=== PATIENT | female | born 1995 | race Caucasian/White ===

== ENCOUNTER 2022-06-19 15:13 | Outpatient (CLI) | payer OTHER ==
[2022-06-19 15:45] LABS: BILIRUBIN,URINE NEGATIVE (NEGATIVE); GLUCOSE, URINE (UA) NEGATIVE (NEGATIVE); KETONES,URINE (UA) NEGATIVE (NEGATIVE); LEUKOCYTE ESTERASE, URINE NEGATIVE (NEGATIVE); NITRITE,URINE NEGATIVE (NEGATIVE); OCCULT BLOOD,URINE NEGATIVE (NEGATIVE); PH,URINE 6.5 PH (5.0-7.5); PROTEIN,URINE NEGATIVE (NEGATIVE); UROBILINOGEN,URINE 0.2 (NORMAL) E.U./dL (NORMAL)
[2022-06-19 15:48] LABS: CLARITY,URINE CLEAR (CLEAR)
[2022-06-19 16:31] LABS: BACTERIA,URINE Few /HPF (None Seen); RBC,URINE None Seen /HPF (0-5); SQUAMOUS EPITHELIAL CELL,UR FEW Squamous (<= Few); WBC,URINE 0-3 /HPF (0-5)
== END 2022-06-19 15:14 | disposition home or self-care (01) ==
LOC: LAB.WC 15:13
PROVIDERS: ATTEND Nurse Practitioner
DX: Z34.90 Encounter for supervision of normal pregnancy, unspecified, unspecified trimester (principal)
CPT/HCPCS: 81001; 87086

== ENCOUNTER 2022-07-05 20:36 | Outpatient (CLI) | payer OTHER ==
--- NOTE | 2022-07-06 03:14 | Ultrasound Report ---
PROCEDURE: OB First Trimester w/TV INDICATIONS: POSITIVE TEST OUTSIDE/PRIOR DATING DATA: Last menstrual period (LMP): 04/07/2022. LMP-based estimated date of delivery (LORENZO): 01/12/2023. First dating scan (date and location): 07/05/2022. Estimated date of delivery (LORENZO) from first dating scan: 01/10/2023. TECHNIQUE: Real-time scanning was performed of the fetus and maternal pelvic organs, with image documentation. Endovaginal scanning was also performed to better visualize the fetus and maternal ovaries. COMPARISON: None. FINDINGS: Embryo: There is a single intrauterine demonstrating a crown-rump length of 6.7 cm corresp onding to a gestational age of 13 weeks 0 days. There is heart motion with a rate of 160 bpm. M aternal cervical canal is closed and measures up to 4.4 cm. There is a small perigestational subchori onic hematoma measuring proxy 2.2 x 1.7 x 1.5 cm. Measurement variability in dating: +/- 4 weeks by LMP, +/- 7 days by mean sac diameter (use before 6 weeks gestation if crown-rump length not able to be measured), +/- 5 days by crown-rump length (6-12 weeks gestation). Maternal organs: There is a thick-walled cyst in the left ovary compatible with a small corpus luteal cyst.. IMPRESSION: 1. Single living intrauterine patency with calculated gestational age of 13 weeks 0 days correspondin g to an estimated delivery date of 01/10/2023. Reviewed by: Phuc Hurt MD on 07/06/2022 3:13 AM PST Approved by: Phuc Hurt MD on 07/06/2022 3:13 AM PST Station ID: [id number]
== END 2022-07-05 20:37 | disposition home or self-care (01) ==
LOC: DI 20:36
PROVIDERS: ATTEND Nurse Practitioner
DX: Z34.91 Encounter for supervision of normal pregnancy, unspecified, first trimester (principal)

== ENCOUNTER 2022-07-19 08:00 | Outpatient (CLI) | payer OTHER ==
[2022-07-23 01:08] LABS: CHLAMYDIA TRACHOMATIS DNA NEGATIVE (NEGATIVE); NEISSERIA GONORRHOEAE DNA NEGATIVE (NEGATIVE); TRICHOMONAS VAGINALIS DNA NEGATIVE (NEGATIVE)
== END 2022-07-19 23:59 | disposition home or self-care (01) ==
LOC: LAB 08:00
PROVIDERS: ATTEND Nurse Practitioner
DX: Z11.3 Encounter for screening for infections with a predominantly sexual mode of transmission (principal)
CPT/HCPCS: 87491; 87591; 87661

== ENCOUNTER 2022-07-19 10:16 | Outpatient (CLI) | payer OTHER ==
[2022-07-19 10:30] LABS: BASOPHILS % (AUTO) 0.2 %; EOSINOPHILS % (AUTO) 0.3 %; HGB - HEMOGLOBIN 13.2 g/dL (12.0-16.0); MEAN CORPUSCULAR HEMOGLOBIN 32.8 pg (27.0-31.0); MEAN CORPUSCULAR VOLUME 93.8 fL (81.0-99.0); MEAN PLATELET VOLUME 9.3 fL (7.9-10.8); MONOCYTES % (AUTO) 4.8 %
[2022-07-19 10:32] LABS: HCT - HEMATOCRIT 37.8 % (37.0-47.0); LYMPHOCYTES # (AUTO) 1.8 10^3/uL (1.5-3.5); LYMPHOCYTES % (AUTO) 30.2 %; MEAN CORPUSCULAR HGB CONC 34.9 g/dL (32.0-36.0); MONOCYTES # (AUTO) 0.3 10^3/uL (0.0-1.0); NEUTROPHILS # (AUTO) 3.8 10^3/uL (1.5-6.6); NEUTROPHILS % (AUTO) 64.2 %; PLT - PLATELET COUNT 222 10^3/uL (130-450); RED BLOOD COUNT 4.03 10^6/uL (4.20-5.40); RED CELL DISTRIBUTION WIDTH 12.6 % (12.0-15.0)
[2022-07-20 04:08] LABS: RPR Non Reactive (Non Reactive)
[2022-07-20 05:10] LABS: HBsAG SCREEN Negative (Negative)
[2022-07-20 08:09] LABS: VARICELLA-ZOSTER AB IGG 384 index (Immune >165)
[2022-07-20 10:08] LABS: HIV SCREEN 4TH GENERATION Non Reactive (Non Reactive)
[2022-07-24 06:09] LABS: HCV AB Non Reactive (Non Reactive)
== END 2022-07-19 10:17 | disposition home or self-care (01) ==
LOC: LAB 10:16
PROVIDERS: ATTEND Nurse Practitioner
DX: Z34.90 Encounter for supervision of normal pregnancy, unspecified, unspecified trimester (principal)
CPT/HCPCS: 36415; 85025; 86592; 86762; 86787; 86803; 86850; 86900; 86901; 87340; 87389

== ENCOUNTER 2022-07-26 15:21 | Outpatient (CLI) | payer OTHER | END 2022-07-26 15:22 | disposition home or self-care (01) | LOC: LAB 15:21 | PROVIDERS: ATTEND Nurse Practitioner | DX: Z53.9 Procedure and treatment not carried out, unspecified reason (principal) ==

== ENCOUNTER 2022-08-23 14:28 | Outpatient (CLI) | payer OTHER ==
--- NOTE | 2022-08-23 16:26 | Ultrasound Report ---
PROCEDURE: OB Detailed Eval INDICATIONS: SUPERVISION OF NORMAL OUTSIDE/PRIOR DATING DATA: Last menstrual period (LMP): 04/07/2022. LMP-based estimated date of delivery (LORENZO): 01/12/2023. First dating scan (date and location): 07/05/2022. Estimated date of delivery (LORENZO) from first dating scan: 01/10/2023. The below data below was generated using the ultrasound LORENZO of 01/10/2023. TECHNIQUE: Real-time scanning was performed of the fetus, with image documentation and biometric measurements. Endovaginal scanning: Not performed COMPARISON: None. FINDINGS: 07/05/2022 General: A single living intrauterine gestation is present. Presentation: Variable Placenta: Placental position is anterior, without previa. Amniotic fluid index: 12.7 cm, 33rd percentile for gestational age. heart rate: 148 beats per minute. Maternal cervical canal: 3.5 cm long; normal length is 2.5 cm or more. biometrics: Biparietal diameter: 4.6 cm, 19 weeks 5 days Head circumference: 17.7 cm, 20 weeks 1 day Abdominal circumference: 15.3 cm, 20 weeks 4 days Femur length: 3.2 cm, 20 weeks 0 days Estimated gestational age from initial scan: 19 weeks 5 days. Composite gestational age from present scan: 20 weeks Estimated weight and percentile: 342 g, 76th percentile Measurement variability in biometric dating: +/- 10 days from 12-20 weeks gestation, +/- 2 weeks from 20-30 weeks gestation, +/- 3 weeks at 30 weeks gestation or later. Anatomic survey: Neuro: Ventricles are normal at less than 10 mm. Cisterna magna is normal at 3-11 mm. Cerebellum i s normal in size and morphology. Nuchal skin fold: Normal at less than 6 mm between 14 and 20 weeks gestational age. Face: Nose and lips, facial profile are normal. Spine: No evidence for spina bifida. Heart: 4-chambered heart is present, with normal ventricular outflow tracts. Diaphragm: Diaphragm is intact. Stomach: Left-sided stomach is present. Kidneys: No hydronephrosis. Normal is less than 5 mm in 2nd trimester, less than 7 mm in 3rd trimester. Cord: 3 vessel cord has orthotopic insertion. Bladder: Normal in size. Extremities: All 4 extremities are visualized. IMPRESSION: Single living intrauterine at 19 weeks 5 days, LORENZO of 01/10/2023. Normal anatomy survey. Reviewed by: Jude Junior on 08/23/2022 4:25 PM PDT Approved by: Jude Junior on 08/23/2022 4:25 PM PDT Station ID: [id number]
[2022-08-27 20:07] LABS: AFP MOM 1.37 (.); AFP VALUE 73.7 ng/mL (.); DIA MOM 2.71 (.); DIA VALUE 448.59 pg/mL (.); DSR (BY AGE) 1 IN 789 (.); DSR (SECOND TRIMESTER) 1 IN 699 (.); GEST. AGE ON COLLECTION DATE 19.7 WEEKS (.); GESTAT. AGE METHOD EDD (.); HCG MOM 2.62 (.); HCG VALUE 64753 mIU/mL (.); INSULIN DEP DIABETES No (.); MATERNAL AGE AT EDD 28.9 yr (.); MULTIPLE GESTATION No (.); OPEN SPINA BIFIDA RISK 1 IN 3920 (.); RACE Caucasian (.); RESULTS Report (.); TEST RESULTS *Screen Negative* (.); TRISOMY 18 RISK Not increased (.); UE3 MOM 0.94 (.); UE3 VALUE 1.91 ng/mL (.); WEIGHT 161 lbs (.)
== END 2022-08-23 14:29 | disposition home or self-care (01) ==
LOC: DI 14:28
PROVIDERS: ATTEND Nurse Practitioner
DX: Z34.92 Encounter for supervision of normal pregnancy, unspecified, second trimester (principal); Z36.89 Encounter for other specified antenatal screening
CPT/HCPCS: 36415; 81511

== ENCOUNTER 2022-10-04 11:33 | Outpatient (CLI) | payer OTHER ==
[2022-10-04 12:50] LABS: HCT - HEMATOCRIT 32.9 % (37.0-47.0); HGB - HEMOGLOBIN 11.1 g/dL (12.0-16.0); MEAN CORPUSCULAR HGB CONC 33.7 g/dL (32.0-36.0); MEAN CORPUSCULAR VOLUME 97.9 fL (81.0-99.0); MEAN PLATELET VOLUME 9.2 fL (7.9-10.8); RED BLOOD COUNT 3.36 10^6/uL (4.20-5.40); RED CELL DISTRIBUTION WIDTH 12.5 % (12.0-15.0); WHITE BLOOD COUNT 7.9 x10^3/uL (4.8-10.8)
== END 2022-10-04 11:34 | disposition home or self-care (01) ==
LOC: LAB 11:33
PROVIDERS: ATTEND Nurse Practitioner
DX: Z34.90 Encounter for supervision of normal pregnancy, unspecified, unspecified trimester (principal); Z36.89 Encounter for other specified antenatal screening
CPT/HCPCS: 36415; 82950; 85027

== ENCOUNTER 2022-11-29 07:42 | Outpatient (CLI) | payer OTHER ==
--- NOTE | 2022-11-29 10:59 | Ultrasound Report ---
PROCEDURE: OB F/U or Repeat INDICATIONS: UTERINE SIZE DATE DISCREPENCY OUTSIDE/PRIOR DATING DATA: Last menstrual period (LMP): 04/07/2022. LMP-based estimated date of delivery (LORENZO): 01/12/2023. First dating scan (date and location): 07/05/2022. Estimated date of delivery (LORENZO) from first dating scan: 01/10/2023. The below data below was generated using the ultrasound LORENZO of 01/10/2023 TECHNIQUE: Real-time scanning was performed of the fetus, with image documentation and biometric measurements. Endovaginal scanning: Not performed. COMPARISON: 08/23/2022 FINDINGS: General: A single living intrauterine gestation is present. Presentation: Vertex Placenta: Placental position is anterior, without previa. Amniotic fluid index: 8.5 cm, 6th percentile for gestational age. heart rate: 148 beats per minute. Maternal cervical canal: 4.3 cm long; normal length is 2.5 cm or more. biometrics: Biparietal diameter: 8.3 cm, 33 weeks 3 days Head circumference: 31.1 cm, 34 weeks 6 days Abdominal circumference: 30.3 cm, 34 weeks 2 days Femur length: 6.75 cm, 34 weeks 5 days Estimated gestational age from initial scan: 34 weeks 0 days. Composite gestational age from present scan: 34 weeks 2 days. Estimated weight and percentile: 2414 g, 55th percentile Measurement variability in biometric dating: +/- 10 days from 12-20 weeks gestation, +/- 2 weeks from 20-30 weeks gestation, +/- 3 weeks at 30 weeks gestation or more. Other: Chest, diaphragm, stomach, and kidneys appear normal. Urinary bladder and pelvis appears withi n normal limits. IMPRESSION: Single living intrauterine at 34 weeks 0 days, LORENZO of 01/10/2023. Amniotic fluid index of 8.5 cm, sixth percentile for gestational age. Estimated weight of 2414 g, 55th percentile. Reviewed by: Jude Junior on 11/29/2022 10:58 AM PDT Approved by: Jude Junior on 11/29/2022 10:58 AM PDT Station ID: [id number]
== END 2022-11-29 07:43 | disposition home or self-care (01) ==
LOC: DI 07:42
PROVIDERS: ATTEND Nurse Practitioner
DX: O26.843 Uterine size-date discrepancy, third trimester (principal); Z3A.34 34 weeks gestation of pregnancy

== ENCOUNTER 2022-12-20 10:05 | Outpatient (CLI) | payer OTHER ==
[2022-12-20 11:13] LABS: BASOPHILS % (AUTO) 0.3 %; EOSINOPHILS % (AUTO) 0.1 %; HCT - HEMATOCRIT 37.1 % (37.0-47.0); HGB - HEMOGLOBIN 12.4 g/dL (12.0-16.0); LYMPHOCYTES # (AUTO) 2.2 10^3/uL (1.5-3.5); MEAN CORPUSCULAR HEMOGLOBIN 32.5 pg (27.0-31.0); MEAN CORPUSCULAR HGB CONC 33.4 g/dL (32.0-36.0); MEAN CORPUSCULAR VOLUME 97.1 fL (81.0-99.0); MEAN PLATELET VOLUME 10.8 fL (7.9-10.8); MONOCYTES # (AUTO) 0.5 10^3/uL (0.0-1.0); MONOCYTES % (AUTO) 6.3 %; NEUTROPHILS % (AUTO) 64.8 %; PLT - PLATELET COUNT 167 10^3/uL (130-450); RED BLOOD COUNT 3.82 10^6/uL (4.20-5.40); RED CELL DISTRIBUTION WIDTH 13.7 % (12.0-15.0); WHITE BLOOD COUNT 7.7 x10^3/uL (4.8-10.8)
[2022-12-20 11:31] LABS: ALBUMIN 3.2 g/dL (3.2-5.5); BILIRUBIN,TOTAL 0.4 mg/dL (0.2-1.0); CALCIUM 9.1 mg/dL (8.5-10.3); CREATININE 0.6 mg/dL (0.6-1.3); POTASSIUM 3.8 mmol/L (3.5-4.5); TOTAL PROTEIN 6.4 g/dL (6.4-8.9)
[2022-12-20 11:33] VITALS: BP 133/72
[2022-12-20 11:50] LABS: CREATININE,URINE 81.2
[2022-12-20 11:52] LABS: PROTEIN/CREATININE RATIO,URINE 0.4 (<=0.2)
--- NOTE | 2022-12-21 07:17 | PROCEDURE REPORT ---
- HPI Diagnosis/Indication for NST: Oligohydramnios Current EDU 01/12/23 Gestation 36 Weeks and 5 Days 1 Para 0 Vital Signs Temperature 98.1 F 12/20/22 10:20 Heart Rate 73 12/20/22 10:20 Respiratory Rate 14 12/20/22 10:20 Blood Pressure 143/71 H 12/20/22 10:20 Temperature 98.1 F 12/20/22 10:20 Heart Rate 72 12/20/22 11:28 Respiratory Rate 16 12/20/22 11:28 Blood Pressure 133/72 H 12/20/22 11:28 O2 Saturation 100 12/20/22 11:28 If not protocol: Oxygen Flow, liters/minute - NST Procedure NST Procedure Start Date 12/20/22 Start Time 10:13 Stop Time 10:33 Vibroacoustic Stimulation Used No Patient States Movement Yes EFM: 130s, moderate variability, positive 15x15 accelerations, no decelerations [place]: no contractions NST reactive/Cat 1 Performed and read 12/20/22 - Results and Plan Findings/Impression: 27yo at 36.5w sent from office after oligohydramnios noted on bedside US for NST - RADHA 8cm was also noted previously 11/29 US - BP today 143/71 and preeclampsia labs obtained, significant for PCR 0.4 - NST reactive today - Plan for IOL after 37w for preeclampsia and oligohydramnios
== END 2022-12-20 12:03 | disposition home or self-care (01) ==
LOC: WFO 10:05 → FBP 10:07 → WFO 12:03
PROVIDERS: ATTEND Obstetrics & Gynecology
DX: O41.03X0 Oligohydramnios, third trimester, not applicable or unspecified (principal); O14.93 Unspecified pre-eclampsia, third trimester; Z3A.37 37 weeks gestation of pregnancy
CPT/HCPCS: 36415; 59025; 80053; 82570; 84156; 85025; 87797; 99214

== ENCOUNTER 2022-12-22 19:46 | Inpatient (IN) | payer OTHER ==
[2022-12-22] MEDS: SODIUM CHLORIDE FLUSH 0.9% 10 ML SYRINGE IVP PRN (20:05)
--- NOTE | 2022-12-22 20:13 | HISTORY & PHYSICAL EXAMINATION ---
Admit History - : 1 Parity: 0 Risk/History: positive: Pre-eclampsia Complications This : positive: None - Mother's Labs Mother's Blood Type: positive: O Mother's RH: positive: Positive GBS: positive: Group B Step Negative Rubella Status: positive: Immune - Other Maternal History Other Maternal History: HPI: Patient is a 27-year-old G1, P0 at 37 weeks 0 days gestation here for induction of labor secondary to preeclampsia and oligohydramnios. She has good movement. Denies loss of fluid. No preeclampsia symptoms. No SAN/BV or RUQP. No vaginal bleeding. Denies nausea and vomiting. Denies urinary urgency or dysuria. Having some occasional contractions. All other symptoms reviewed and were negative except per HPI. Course LMP: 04/07/2022 LORENZO by LMP: 01/12/2023 07/06/2022+0 weeks/ C/W dates Final LORENZO: 01/12/2023 Problems: Pre- weight: 160.6 BMI: 24.51 oligohydramnios: 2.2 cm with largest vertical pocket. Preeclampsia without severe features: Diagnosed at 36 weeks with elevated blood pressure and protein creatinine ratio 0.4 Blood Type: O+ Antibody: Negative Rubella: immune VZV: immune Genetic testing: Negative [id number]. AFP negative/normal FAS: WNL, EFW 76th% 3 VC anterior placenta RADHA normal Glucola: 82 Influenza: given 07/19 COVID: first 2, no boosters TDAP: given 10/25 GBS: Negative HSV: denies Breast Pump Rx: Given 10/11 MOD:anticipate pp contraception: pap: 2020 normal Initial GC/CT: collected 07/19 negative PMH Denies significant history PSH No prior surgeries OB History G1, P0 SH Denies tobacco, alcohol, drug Family History Mother: High cholesterol Father: High cholesterol Maternal grandmother: Colon cancer Allergies No known drug allergies Medications vitamins Physical exam: General: Alert, oriented, no acute distress Eyes: PERRLA, extraocular motions intact. Respiratory: Normal rate of respiration. No accessory muscle use, normal respiratory effort. Cardiovascular: Regular rate and rhythm Abdomen: Gravid, nontender, nondistended Extremities: Normal range of motion Neuro: Oriented x3. Normal movements Psych: Appropriate mood and affect. Normal judgment and insight SVE: 1/60/-2 FHT: 130 beats minute baseline, moderate variability, accelerations present, no decelerations. [place]over: Irregular Plan 27-year-old 7 weeks 0 days gestation here for induction of labor 1. Induction of labor -Admit for labor and delivery, admit labs, epidural at patient's request -Plan to start him misoprostol 25 mcg buccal. 2. Oligohydramnios 3. Preeclampsia without severe features -Urine protein creatinine ratio, CMP, CBC pending. I expect patient to be discharged or transferred within 96 hours. - NST Procedure NST Procedure Start Time 10:13 Stop Time 10:33 Meds/Allgy - Allergies Allergies/Adverse Reactions: Allergies Allergy/AdvReac Type Severity Reaction Status Date / Time No Known Drug Allergies Allergy Verified 12/22/22 21:11
[2022-12-22] MEDS ORDERED: fentaNYL 100 MCG/2 ML VIAL IVP PRN (20:17)
[2022-12-22] MEDS ORDERED: LABETALOL 20 MG/4 ML SYRINGE IVP PRN ×3 (20:17)
[2022-12-22] MEDS ORDERED: CARBOPROST TROMETHAMINE 250 MCG/ML AMP IM PRN (20:17)
[2022-12-22] MEDS ORDERED: miSOPROStoL 200 MCG TABLET PR PRN (20:17)
[2022-12-22] MEDS ORDERED: hydrALAZINE INJ 20 MG/ML VIAL IVP PRN ×2 (20:17)
[2022-12-22] MEDS ORDERED: TERBUTALINE 1 MG/ML VIAL SUBQ PRN (20:17)
[2022-12-22] MEDS ORDERED: lidocaine 1% 20 ML MDV ID PRN (20:17)
[2022-12-22] MEDS ORDERED: TRANEXAMIC ACID IN NACL 1,000 MG/100 ML BAG IV PRN (20:17)
[2022-12-22] MEDS ORDERED: NIFEdipine 10 MG CAPSULE PO PRN (20:17)
[2022-12-22] MEDS ORDERED: miSOPROStoL 200 MCG TABLET BC PRN (20:17)
[2022-12-22] MEDS ORDERED: OXYTOCIN/SODIUM CHLORIDE 500 ML IV PRN (20:17)
[2022-12-22] MEDS ORDERED: OXYTOCIN 10 UNIT/ML VIAL IM PRN (20:17)
[2022-12-22] MEDS ORDERED: ONDANSETRON 4 MG/2 ML VIAL IVP PRN (20:17)
[2022-12-22] MEDS ORDERED: METHYLERGONOVINE 0.2 MG/ML VIAL IM PRN (20:17)
[2022-12-22 20:41] LABS: CREATININE,URINE 39.7 mg/dL; PROTEIN/CREATININE RATIO,URINE 0.1 (<=0.2)
[2022-12-22] MEDS ORDERED: LACTATED RINGERS 1,000 ML IV PRN (21:03)
[2022-12-22 21:06] LABS: BASOPHILS % (AUTO) 0.2 %; EOSINOPHILS % (AUTO) 0.2 %; HCT - HEMATOCRIT 35.8 % (37.0-47.0); HGB - HEMOGLOBIN 11.9 g/dL (12.0-16.0); LYMPHOCYTES # (AUTO) 2.6 10^3/uL (1.5-3.5); LYMPHOCYTES % (AUTO) 31.5 %; MEAN CORPUSCULAR HEMOGLOBIN 32.2 pg (27.0-31.0); MEAN CORPUSCULAR HGB CONC 33.2 g/dL (32.0-36.0); MEAN CORPUSCULAR VOLUME 96.8 fL (81.0-99.0); MEAN PLATELET VOLUME 10.9 fL (7.9-10.8); MONOCYTES # (AUTO) 0.6 10^3/uL (0.0-1.0); MONOCYTES % (AUTO) 6.8 %; NEUTROPHILS % (AUTO) 60.8 %; PLT - PLATELET COUNT 198 10^3/uL (130-450); RED CELL DISTRIBUTION WIDTH 13.6 % (12.0-15.0); WHITE BLOOD COUNT 8.2 x10^3/uL (4.8-10.8)
[2022-12-22] MEDS ORDERED: ACETAMINOPHEN 500 MG TABLET PO PRN (21:06)
[2022-12-22] MEDS ORDERED: CALCIUM CARBONATE CHEW 500 MG TABLET PO PRN (21:21)
[2022-12-22 21:25] LABS: ALBUMIN 3.2 g/dL (3.2-5.5); BILIRUBIN,TOTAL 0.5 mg/dL (0.2-1.0); CALCIUM 8.7 mg/dL (8.5-10.3); CREATININE 0.5 mg/dL (0.6-1.3); POTASSIUM 3.7 mmol/L (3.5-4.5); TOTAL PROTEIN 6.3 g/dL (6.4-8.9)
[2022-12-22] MEDS: miSOPROStoL 100 MCG TABLET BC SCH (21:26)
[2022-12-23] MEDS: miSOPROStoL 100 MCG TABLET BC SCH (01:37)
[2022-12-23] MEDS: SODIUM CHLORIDE FLUSH 0.9% 10 ML SYRINGE IVP PRN (01:38)
--- NOTE | 2022-12-23 03:01 | PROVIDER PROGRESS NOTE ---
Labor Progress Note - Uterine Monitoring Uterine Monitoring Mode: positive: External toco Contraction Frequency (min/apart): Quiescent - Monitoring Monitor Mode: positive: External ultrasound Heart Rate Baseline: 125 Heart Rate Variability: positive: Moderate (6-25 bmp) Accelerations: positive: Present, 15x15 Decelerations: positive: None Strip Review: positive: Category I - Labor Progress Note Labor Progress Note/Additional Text: Patient has received 2 doses of misoprostol for cervical ripening. heart tracing category 1. Continue expectant management at this time.
[2022-12-23] MEDS: LACTATED RINGERS 1,000 ML IV SCH ×2 (04:47→10:18)
[2022-12-23] MEDS ORDERED: ROPIVACAINE 0.2% 0 MG/0 ML BAG EP ONE (05:08)
[2022-12-23] MEDS ORDERED: ROPIVACAINE 0.2% 200 MG/100 ML BAG EP ONE (05:24)
[2022-12-23] MEDS ORDERED: SODIUM CHLORIDE 0.9% 10 ML VIAL IVP ONE (05:58)
[2022-12-23] MEDS ORDERED: LIDOCAINE-PF 2% 10 ML AMP SUBQ ONE (05:58)
[2022-12-23] MEDS ORDERED: fentaNYL 100 MCG/2 ML VIAL ONE (05:58)
--- NOTE | 2022-12-23 06:08 | ANESTHESIA ---
Pre-Anesthesia VS, & Labs - Diagnosis Active labor - Procedure vaginal delivery Vital Signs: Temp Pulse Resp BP Pulse Ox O2 Flow Rate 37.4 C 81 20 137/75 H 12/22/22 21:28 12/22/22 21:28 12/22/22 21:28 12/22/22 21:28 Height: 5 ft 8 in Weight (kg): 84.64 kg Body Mass Index: 28.3 BMI Classification: Overweight - NPO Last Fluid Intake: clear liquid - Is Patient ?: Yes - Lab Results Current Lab Results: Laboratory Tests 12/22/22 20:50: Sodium 137, Potassium 3.7, Chloride 108, Carbon Dioxide 21, Anion Gap 8.0, BUN 8, Creatinine 0.5 L, Estimated GFR (MDRD) 147, Glucose 80, Calcium 8.7, Total Bilirubin 0.5, AST 16, ALT 12, Alkaline Phosphatase 168 H, Total Protein 6.3 L, Albumin 3.2, Globulin 3.1, Albumin/Globulin Ratio 1.0 12/22/22 20:50: WBC 8.2, RBC 3.70 L, Hgb 11.9 L, Hct 35.8 L, MCV 96.8, MCH 32.2 H, MCHC 33.2, RDW 13.6, Plt Count 198, MPV 10.9 H, Neut # (Auto) 5.0, Lymph # (Auto) 2.6, Green # (Auto) 0.6, Eos # (Auto) 0.0, Baso # (Auto) 0.0, Absolute Nucleated RBC 0.00, Nucleated RBC % 0.0 12/22/22 20:50: Blood Type O POSITIVE, Antibody Screen NEGATIVE Lab results reviewed: Yes Fish Bones: 12/22/22 20:50 12/22/22 20:50 Home Medications and Allergies Active Medications Acetaminophen (Acetaminophen 500 Mg Tablet) 1,000 mg PO Q4HR PRN PRN Reason: Pain or Fever > 38C (100.4F) Calcium Carbonate/Glycine (Calcium Carbonate Chew 500 Mg Tablet) 500 mg PO Q6H PRN PRN Reason: Heartburn Last Admin: 12/22/22 22:18 Dose: 500 mg Carboprost Tromethamine (Carboprost Tromethamine 250 Mcg/Ml Amp) 250 mcg IM .ONCE PRN PRN Reason: Hemorrhage Fentanyl (Fentanyl 100 Mcg/2 Ml Vial) 50 mcg IVP Q1H PRN PRN Reason: Severe Pain (score 7-10) Hydralazine HCl (Hydralazine Inj 20 Mg/Ml Vial) 5 - 10 mg IVP Q20M PRN; Protocol PRN Reason: SBP> or= 160 OR DBP> or= 110 Hydralazine HCl (Hydralazine Inj 20 Mg/Ml Vial) 10 mg IVP .ONCE PRN; Protocol PRN Reason: SBP> or= 160 OR DBP> or= 110 Oxytocin/Sodium Chloride (Pitocin/Sodium Chloride) 500 mls @ 999 mls/hr IV PRN PRN; Protocol PRN Reason: POST- HEMORR PREVENTION Tranexamic Acid (Tranexamic 1,000 Mg/100ml-Nacl) 1,000 mg in 100 mls @ 600 mls/hr IV Q30M PRN PRN Reason: EBL >1200mL and within 3hr Lactated Ringer's (Lr) 1,000 mls @ 125 mls/hr IV .Q8H LEWIS Last Admin: 12/23/22 04:47 Dose: 125 mls/hr Lactated Ringer's (Lr) 500 mls @ 999 mls/hr IV PRN PRN PRN Reason: PER PHYSICIAN ORDER Labetalol HCl (Labetalol 20 Mg/4 Ml Syringe) 20 - 80 mg IVP Q10M PRN; Protocol PRN Reason: SBP> or= 160 OR DBP> or= 110 Labetalol HCl (Labetalol 20 Mg/4 Ml Syringe) 20 mg IVP .ONCE PRN; Protocol PRN Reason: SBP> or= 160 OR DBP> or= 110 Labetalol HCl (Labetalol 20 Mg/4 Ml Syringe) 20 - 40 mg IVP Q10M PRN; Protocol PRN Reason: SBP> or= 160 OR DBP> or= 110 Lidocaine HCl (Lidocaine 1% 20 Ml Mdv) 20 ml ID .ONCE PRN PRN Reason: PERINEAL REPAIR Stop: 12/25/22 20:18 Methylergonovine Maleate (Methylergonovine 0.2 Mg/Ml Vial) 0.2 mg IM .ONCE PRN PRN Reason: Hemorrhage Misoprostol (Misoprostol 200 Mcg Tablet) 600 mcg BC .ONCE PRN PRN Reason: Hemorrhage Misoprostol (Misoprostol 200 Mcg Tablet) 800 mcg [place] .ONCE PRN PRN Reason: Hemorrhage Misoprostol (Misoprostol 100 Mcg Tablet) 25 mcg BC Q4H LEWIS Last Admin: 12/23/22 01:37 Dose: 25 mcg Nifedipine (Nifedipine 10 Mg Capsule) 10 - 20 mg PO Q20M PRN; Protocol PRN Reason: SBP> or= 160 OR DBP> or= 110 Ondansetron HCl (Ondansetron 4 Mg/2 Ml Vial) 4 mg IVP PRN PRN PRN Reason: Nausea / Vomiting Oxytocin (Oxytocin 10 Unit/Ml Vial) 10 unit IM .ONCE PRN PRN Reason: Step One if no IV access. Sodium Chloride (Sodium Chloride Flush 0.9% 10 Ml Syringe) 10 ml IVP PRN PRN PRN Reason: NEEDED PER PROVIDER ORDERS Last Admin: 12/23/22 01:38 Dose: 10 ml Terbutaline Sulfate (Terbutaline 1 Mg/Ml Vial) 0.25 mg SUBQ .ONCE PRN PRN Reason: Tachystole Allergies/Adverse Reactions: Allergies Allergy/AdvReac Type Severity Reaction Status Date / Time No Known Drug Allergies Allergy Verified 12/22/22 21:11 Anes History & Medical History - Anesthetic History Family history of Anesthesia Complications: Denies Family history of Malignant Hyperthermia: Denies - Medical History Cardiovascular: reports: None Pulmonary: reports: None Gastrointestinal: reports: None Urinary: reports: None Neuro: reports: None Musculoskeletal: reports: None Endocrine/Autoimmune: reports: None Blood Disorders: reports: None Skin: reports: None Smoking Status: Never smoker Psychosocial: reports: No issues indicated History of Cancer?: No - Obstetrical History : 1 Parity: 0 Events: reports: Pre-eclampsia, Oligohydramnios Complications: reports: None Exam General: Alert, Oriented x3, Cooperative, No acute distress Dental: WNL Mouth Openin Fingerbreadth Neck Mobility: Normal Mallampati classification: II Thyromental Distance: 4-6 cm Mental/Cognitive Status: Alert/Oriented X3, Normal for patient Plan Anesthesia Type: Epidural Consent for Procedure(s) Verified and Reviewed: Yes Code Status: Attempt Resuscitation ASA classification: 2-Mild systemic disease Is this case an emergency?: No
[2022-12-23] MEDS ORDERED: ROPIVACAINE 0.2% 200 MG/100 ML BAG EP PRN (06:09)
[2022-12-23] MEDS ORDERED: NALOXONE 0.4 MG/ML VIAL IVP PRN (06:09)
[2022-12-23] MEDS ORDERED: ePHEDrine 50 MG/ML VIAL IVP PRN (06:09)
[2022-12-23] MEDS ORDERED: SODIUM CHLORIDE FLUSH 0.9% 10 ML SYRINGE IVP PRN (08:37)
[2022-12-23] MEDS ORDERED: SODIUM CHLORIDE FLUSH 0.9% 10 ML SYRINGE IVP SCH (09:00)
[2022-12-23] MEDS ORDERED: OXYTOCIN/SODIUM CHLORIDE 500 ML IV SCH (09:00)
[2022-12-23] MEDS ORDERED: LACTATED RINGERS 1,000 ML IV SCH ×2 (09:00→13:00)
[2022-12-23] MEDS ORDERED: WITCH HAZEL/GLYCERIN 1 PAD TOP PRN (12:22)
[2022-12-23] MEDS ORDERED: HYDROCORTISONE 1% CREAM 28 GM TUBE PR PRN (12:22)
--- NOTE | 2022-12-23 12:35 | DELIVERY NOTE ---
Delivery Note - Labor Labor: positive: Augmented by oxytocin - Delivery Method Delivery Method: positive: Spontaneous vaginal delivery - Cervical Ripening Method Cervical Ripening Method: positive: Misoprostil - Presentation Presentation: positive: MARIANNE - right occiput anterior - Nuchal Cord Nuchal Cord: positive: Present (reduced after delivery) - Anesthetic Anesthetic Type: - Amniotic Fluid Description Amniotic Fluid Description: positive: Clear - Episiotomy Type Episiotomy Type: positive: None - Laceration Laceration: positive: 2nd degree (Vaginal) - Suture Suture Type: positive: Vicryl Suture Size: positive: 3-0 - Delivery Outcome Delivery Outcome: positive: Livebirth - [place] : positive: Placed in direct skin contact with mother, Bulb syringe, Stimulated, Warmed, [place] used sex: positive: Female - Cord Cord: positive: 3 vessels - Placenta Placenta: positive: Intact - Estimated Blood Loss Estimated Blood Loss (in cc): 100 - Delivery Comments (Free Text/Narrative) Delivery Comments (Free Text/Narrative): 10/100/+2, pushing with good efforts. Head delivered, MARIANNE. Nuchal x1 noted, reduced after delivery. Shoulders and body delivered with ease. Baby girl placed on mother's abdomen. Delayed cord clamping. Fundus firm. Placenta delivered, spontaneously and intact, 3vc. Vagina and perineum inspected- 2nd degree vaginal midline laceration repaired with 3-0 vicryl in usual fashion. Hemostasis. Family bonding at bedside doing well.
[2022-12-23] MEDS: IBUPROFEN 800 MG TABLET PO SCH ×2 (14:38→21:00)
[2022-12-23] MEDS: ACETAMINOPHEN 500 MG TABLET PO SCH (20:40)
[2022-12-24] MEDS: IBUPROFEN 800 MG TABLET PO SCH ×4 (00:12→20:30)
[2022-12-24] MEDS: ACETAMINOPHEN 500 MG TABLET PO SCH ×4 (05:12→21:23)
--- NOTE | 2022-12-24 09:05 | PROVIDER PROGRESS NOTE ---
Subjective - Prog Note Date Prog Note Date: 12/24/22 Prog Note Time: 09:00 - Subjective Pt reports feeling: Improved Subjective: Comfortable, some cramping and pelvic pressure. Appropriate lochia. Ambulating. Voiding. Tolerating regular diet. well. Mood is good. Objective - Vital Signs/Intake & Output Reviewed Vital Signs: Yes Vital Signs: Vital Signs x48h Temp Pulse Resp BP 12/24/22 04:10 98.1 F 70 16 123/61 Intake & Output: Intake & Output 12/21/22 12/22/22 12/23/22 12/24/22 23:59 23:59 23:59 23:59 Intake Total 2753.450 200 Output Total 400 1350 Balance 2353.450 -1150 - Objective General Appearance: positive: No acute distress Eyes Bilateral: positive: EOMI Respiratory: positive: No respiratory distress Abdomen: positive: Non-tender (FF) Skin: positive: Color nml Extremities: positive: Non-tender Neurologic/Psychiatric: positive: Oriented x3 - Lab Results Fish Bones: 12/22/22 20:50 12/22/22 20:50 Assessment/Plan - Problem List (1) care following vaginal delivery Impression: 27yo s/p 12/23/22 following IOL for preeclampsia and oligohydramnios, PPD#1 - Doing well, recovering appropriately (2) Pre-eclampsia affecting childbirth Impression: BP normal (3) Oligohydramnios delivered Impression: RADHA 2cm, now delivered (4) 37 weeks gestation of Impression: Baby girl doing well, rooming with mother (5) Single live Impression: Continue care, anticipate discharge tomorrow
[2022-12-24] MEDS: DOCUSATE SODIUM 100 MG CAPSULE PO SCH ×2 (10:06→20:30)
[2022-12-25] MEDS: ACETAMINOPHEN 500 MG TABLET PO SCH ×2 (00:55→08:33)
[2022-12-25] MEDS: IBUPROFEN 800 MG TABLET PO SCH ×2 (05:58→14:13)
--- NOTE | 2022-12-25 07:50 | Discharge Plan ---
Discharge Plan Problem Reviewed?: Yes Disposition: Home, Self Care Condition: Good Diet: Regular Activity Restrictions: No Restrictions Shower Restrictions: No Weight Bearing: Full Weight Instruction Topics: Vaginal After, Depression , Preeclampsia No Smoking: If you smoke, Please STOP! Call for help.
[2022-12-25] MEDS: DOCUSATE SODIUM 100 MG CAPSULE PO SCH (09:19)
[2022-12-25 09:51] VITALS: BP 131/76
--- NOTE | 2022-12-25 14:43 | Labor Flowsheet ---
Labor Flowsheet Datetime Report Generated by CPN: 12/25/2022 14:43 Datetime: 12/25/2022 08:36 VITAL SIGNS NBP Sys/Sandra/Mean (mmHg): 131 : 76 : 88 Pulse: 58 Datetime: 12/23/2022 23:25 PRE-INDUCTION CHECKLIST Orders on Chart: Yes H Indication Charted: Yes Adequate Pelvis Charted: Yes EFW Documented: Yes Gestational Age Documented: Yes Consent Signed and on Chart: Yes Provider with C/S Priv Aware: Yes Status of Cervix Documented: Yes Presentation Documented: Yes 30min of Monitoring Prior: Yes 2 Accels of 15X15 Present: Yes No Late Decels Present: Yes Less than 2 Variable Decels: Yes Pt Meets Criteria for Induction: Yes Datetime: 12/23/2022 15:10 Epidural Procedure Other: Cath Removed; Cath Intact Datetime: 12/23/2022 14:30 MATERNAL ASSESSMENT Level of Consciousness: Alert DTR's/Clonus: DTRs 1+ Headache: Denies Breath Sounds, Left: Clear and Equal Breath Sounds, Right: Clear and Equal Nausea/Vomiting: Denies RUQ Epigastric Pain: Denies Datetime: 12/23/2022 13:45 Stage of : Recovery Datetime: 12/23/2022 12:45 Respirations: 18 Datetime: 12/23/2022 12:34 Communication Comments: Dr. [place] at bedside Datetime: 12/23/2022 12:15 PAIN Pain Scale: 0 Pain Presence: None/Denies Datetime: 12/23/2022 12:05 Membranes Ruptured Date/Time: 12/23/2022 11:59 Amniotic Fluid Amount: Small Amniotic Fluid Odor: None Datetime: 12/23/2022 11:59 LaborFlag: Labor Datetime: 12/23/2022 11:49 Membranes Rupture Method: Spontaneous Amniotic Fluid Color: Clear Datetime: 12/23/2022 11:45 UTERINE ACTIVITY Monitor Mode: External Frequency (min): 1-3 Quality: Moderate Duration (sec): 50-80 Pattern: Normal: <= 5 Contractions in 10 Minutes Resting Tone (Palpate): Relaxed FHR Baseline Rate : 140 Variability: Moderate 6-25 bpm Accelerations: None Decelerations: Early; Variable Category: Category II Datetime: 12/23/2022 11:22 I/O Interventions: [place] Discontinued Datetime: 12/23/2022 11:16 Monitor Interventions for UA: [place] Adjusted Datetime: 12/23/2022 11:15 Temperature (C): 37.2 Datetime: 12/23/2022 11:14 SpO2 (%): 100 Datetime: 12/23/2022 11:13 Patient Care Comments: olmos catheter balloon deflated Datetime: 12/23/2022 11:07 MEDICATIONS Pitocin (milliunits): Decreased to @ 2 mu Datetime: 12/23/2022 10:45 ASSESSMENT A Monitor Mode: External US VAGINAL EXAM Dilatation (cm): 10.0 Effacement (%): 100 Station: 3 Exam by: RN Olivia Datetime: 12/23/2022 10:33 Monitor Interventions for FHR: Ultrasound Adjusted Datetime: 12/23/2022 10:30 Comments: RN at bedside, EFM adjusted Patient Position/Activity: Left Lateral Datetime: 12/23/2022 10:15 Pitocin Checklist: No More than 1 Late Deceleration Occurred in Past 30 Minutes; No More than 5 [place] Contractions in 10 Minutes for any 20 Minute Interval; Uterus Palpates Soft between Contractions Datetime: 12/23/2022 09:07 Contraction Comments: unable to determine ctx freq/dur d/t maternal and toco position. Datetime: 12/23/2022 07:30 Temperature Route: Oral Datetime: 12/23/2022 07:26 Vaginal Bleeding: None Cervix, Consistency: Soft Cervix, Position: Midposition Datetime: 12/23/2022 07:02 FHR Baseline Changes: No Baseline Change Datetime: 12/23/2022 06:29 Pain Type: N/A Pain Goal: 5 Pain Relief Measures: Epidural Given Pain Coping: Talking Through Contractions Anesthesia Level Check: T5 Datetime: 12/23/2022 06:10 ANESTHESIA Anesthesia Plans: Epidural Datetime: 12/23/2022 05:56 Epidural Procedure: Loading Dose Anesthesia Comments: Loading dose completed Datetime: 12/23/2022 05:32 Pain Location: Abdomen; Right Groin; Left Groin Datetime: 12/23/2022 05:25 PROCEDURE TIME OUT Procedure Type: 30 Procedure Verify: Correct Patient Identity; Correct Side and Site are Marked; Accurate Procedure Co nsent Form; Agreement on Procedure to be Done; Correct Patient Position; Safety Precautions Based on Patient History or Medication Use Epidural Positioning: Sitting Datetime: 12/23/2022 05:23 Pain Management: Epidural; Pain Scale/Goals Datetime: 12/23/2022 05:22 COMMUNICATION Communication: Provider at Bedside Provider 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 Datetime: 12/23/2022 04:57 Provider Reviewed Strip: No Notification Reason: Status Update; Labor Status; Uterine Activity; Pain Datetime: 12/23/2022 04:44 Membrane Status: Intact Datetime: 12/23/2022 04:15 Teaching Comments: instructed on use of nitrous oxide; questions answered; pt agreeable to try for UC pain Datetime: 12/23/2022 03:39 Vital Sign Comments: Sitting up; breathing thru UCs, pain at 5-6/10 per pt report Datetime: 12/23/2022 01:40 Cervical Ripening Agents: Cytotec @ Datetime: 12/23/2022 01:30 Comfort Measures: Breathing/Relaxation; Family Support Datetime: 12/22/2022 22:18 Antiemetics/Antacids: Other Antiemetic/Antacid @ (Annotations: Tums/calcium carbonate 500mg x 1 PO) Datetime: 12/22/2022 22:00 Vibroacoustic Stim: Datetime: 12/22/2022 20:50 PATIENT CARE IV/Blood Work: IV Started; Labs Drawn with IV Start; IV Saline Locked Datetime: 12/22/2022 20:45 Strip Reviewed by: Dr Dustin Datetime: 12/22/2022 20:30 Presentation 'A': Cephalic Lie 'A': Longitudinal DUQUE'S SCORE Dilatation (cm): 1-2 cm Effacement: 60-70_ effaced Station: minus 2 Consistency: Medium Position: Midposition Total Duque's Score: 6 : 5-8 = Small percentage of induction failure Datetime: 12/22/2022 20:10 TEACHING Instructional Method: Verbal; Patient Instructed; Family/Support Person Instructed; Verbalized Unde rstanding Plan of Care: Plan of Care Discussed; Induction; Gestational Hypertension/Preeclampsia/Eclampsia Unit Routine: [place] to Room; Call [place]; Bed; Visiting Policy; Phone/Cell Phone Use; Unit Personnel ; Handwashing; Monitoring; Safety/Fall Risk Prevention; Diet/Nutrition Services; Bathroom Privi leges; Medications Datetime: 12/22/2022 19:55 Record Available: Yes
--- NOTE | 2022-12-25 21:36 | DISCHARGE SUMMARY ---
"Discharge Summary Admit Date: 12/22/22 Discharge Date: 12/25/22 Discharging Provider: Elen Ag DO Code Status: Attempt Resuscitation Condition at Discharge: Good Discharge Disposition: 01 Home, Self Care Discharge Facility Name: [facility] - DIAGNOSES Admission Diagnoses: Preeclampsia, oligohydramnios, 37w - HPI History of Present Illness: 27yo admitted at 37w for scheduled IOL for preeclampsia, oligohydramnios. - CONSULTS | PROCEDURES Consultations: Anesthesia - HOSPITAL COURSE Hospital Course: 27yo admitted at 37w for scheduled IOL for preeclampsia, oligohydramnios. She was induced with misoprostol and then Pitocin. Progressed and uncomplicated . Recovering appropriately. BP normal. Feels ready to go home PPD#2. care, blues reviewed. She will follow up 1w for BP check. - ALLERGIES Allergies/Adverse Reactions: Allergies Allergy/AdvReac Type Severity Reaction Status Date / Time No Known Drug Allergies Allergy Verified 12/22/22 21:11 - PHYSICAL EXAM AT DISCHARGE General Appearance: positive: No acute distress Eyes Bilateral: positive: Normal inspection Respiratory: positive: No respiratory distress Abdomen: positive: Non-tender (FF) Back: positive: Nml inspection Skin: positive: Color nml Extremities: positive: Non-tender Neurologic/Psychiatric: positive: Oriented x3 - LABS Result Diagrams: 12/22/22 20:50 12/22/22 20:50 - QUALITY (Female Hip Fx Only) Was patient sent home on osteoporosis medication?: No - FOLLOW UP Follow Up: 01/03/23 915 - TIME SPENT Time Spent in Discharge (Minutes): 25"
== END 2022-12-25 14:39 | disposition home or self-care (01) | DRG 806 ==
LOC: WFO 19:46 → FBP 19:47 → WFO 21:01
PROVIDERS: ADMIT Obstetrics & Gynecology; ATTEND Obstetrics & Gynecology
PROC: 3E0DXGC Introduction of Other Therapeutic Substance into Mouth and Pharynx, External Approach (ICD-10-PCS; principal; 2022-12-22)
PROC: 10E0XZZ Delivery of Products of Conception, External Approach (ICD-10-PCS; 2022-12-23)
PROC: 0KQM0ZZ Repair Perineum Muscle, Open Approach (ICD-10-PCS; 2022-12-23)
DX: O14.04 Mild to moderate pre-eclampsia, complicating childbirth (principal); O41.03X0 Oligohydramnios, third trimester, not applicable or unspecified; Z37.0 Single live birth; O69.81X0 Labor and delivery complicated by cord around neck, without compression, not applicable or unspecified; O70.1 Second degree perineal laceration during delivery; Z3A.37 37 weeks gestation of pregnancy
CPT/HCPCS: 80053; 82570; 84156; 85025; 86850; 86900; 86901; A9270; J7120